=== PATIENT | male | born 1995 | race African-American/Black ===

== ENCOUNTER 2023-01-27 20:11 | Emergency (ER) | payer OTHER ==
[~2023-01-27] VITALS: Ht 180.3 cm; Wt 86.2 kg
[2023-01-27 22:12] VITALS: BP 117/80; PULSE 85; RESP 16; TEMP 97.2; O2SAT 98
== END 2023-01-27 23:39 | disposition home or self-care (01) ==
LOC: MED 20:11
DX: S06.0X0A Concussion without loss of consciousness, initial encounter (principal); Z88.0 Allergy status to penicillin; W22.8XXA Striking against or struck by other objects, initial encounter; Y92.89 Other specified places as the place of occurrence of the external cause; Y93.89 Activity, other specified; Y99.8 Other external cause status
CPT/HCPCS: 70450; 99284